=== PATIENT | female | born 1945 | race Caucasian/White ===

== ENCOUNTER → 2016-08-10 | Outpatient (CLI) | payer MEDICARE, MEDICAID ==
[~2016-08-10] MED LIST: AMBIEN10 MG PO; AMBIEN5 MG; ATIVAN1 MG; ATIVAN1 MG PO; CIPRO500 MG PO; CIPROFLOXACIN500 MG PO; CYMBALTA60 MG PO; DAYPRO600 M1 PO; HYDROCODONE BIT1 T11 PO; LEVOFLOXACIN500 MG PO; LIPITOR20 MG PO; LOPRESSOR25 MG PO; NEXIUM40 MG PO; PREVACID15 MG PO; PROZAC10 M1 PO; SEPTRA DS 800 M1 TAB PO; SOMA250 MG PO; SYNTHROID,LEVOTHROID PO; VICODIN 5/500 505 MG PO; VICODIN ES 7501 TA1 PO
== END | disposition home or self-care (01) ==
LOC: RAD 12:48
DX: M47.896 Other spondylosis, lumbar region (principal)

== ENCOUNTER 2017-08-21 08:50 | Inpatient (IN) | payer MEDICARE, MEDICAID ==
[~2017-08-21] VITALS: Ht 160 cm; Wt 88.6 kg
[2017-08-21] VITALS (8 sets, daily range): BP systolic 119–180; BP diastolic 56–96
[2017-08-21 09:27] LABS: BASO % 0.7 % (0.0-1.0); EOS % 0.7 % (1.0-4.0); HEMATOCRIT 38.9 % (37.0-47.0); HEMOGLOBIN 12.7 g/dl (12.0-16.0); LYMPH # 1.9 10*3/uL (1.3-4.4); LYMPH % 33.8 % (27.0-41.0); MEAN CELL VOLUME 95.1 fl (81.0-99.0); MEAN CORPUSCULAR HGB 31.1 pg (27.0-31.0); MEAN CORPUSCULAR HGB CONC 32.6 g/dl (33.0-37.0); MEAN PLATELET VOLUME 10.1 fl (9.6-12.3); MONO # 0.6 10*3/uL (0.1-1.0); MONO % 10.3 % (3.0-9.0); NEUT # 3.1 10*3/uL (2.3-7.9); NEUT % 54.3 % (47.0-73.0); PLATELET COUNT AUTOMATED 215 10*3/uL (130-400); RED BLOOD COUNT 4.09 10*6/uL (4.10-5.10); RED CELL DISTRI WIDTH 13.1 % (0-14.5); WHITE BLOOD COUNT 5.7 10*3/uL (4.8-10.8)
[2017-08-21 09:39] LABS: ACT PARTIAL THROMBO TIME 24.3 SECONDS (20.8-31.5); INTERNATIONAL NORM RATIO 0.9 (2.0-3.5)
[2017-08-21 09:47] LABS: ALBUMIN 3.3 gm/dl (3.1-4.5); ALKALINE PHOSPHATASE 78 U/L (45-117); BUN 15 mg/dl (7-24); CHLORIDE 107 mmol/L (98-107); CREATININE 0.92 mg/dL (0.55-1.02); LIPASE 157 U/L (73-393); POTASSIUM 3.6 mmol/L (3.5-5.1); SGOT/AST 36 IU/L (3-35); SGPT/ALT 47 U/L (12-78); SODIUM 141 mmol/L (136-145); TOTAL PROTEIN 6.5 gm/dL (6.4-8.2); TROPONIN I < 0.015 ng/ml (<0.045)
[2017-08-21 09:54] LABS: FREE T4 0.57 ng/dl (0.76-1.46)
[2017-08-21 09:59] LABS: THYROID STIM HORMONE (HS) 6.12 uIU/ml (0.358-4.75)
[2017-08-21 10:10] LABS: BILIRUBIN NEGATIVE (NEGATIVE); BLOOD NEGATIVE (NEGATIVE); CLARITY SL CLOUDY (CLEAR); COLOR YELLOW (YELLOW); GLUCOSE NEGATIVE (NEGATIVE); KETONE NEGATIVE (NEGATIVE); LEUKO ESTERASE NEGATIVE (NEGATIVE); NITRITE NEGATIVE (NEGATIVE); PH 5.5 (5.0-9.0); SPECIFIC GRAVITY <= 1.005 (1.005-1.030); UROBILINOGEN 0.2 E.U./dl (0.2-1.0)
[2017-08-21 10:25] LABS: BACTERIA 3+
[2017-08-22] VITALS: BP 134/57
[2017-08-22 06:10] LABS: BASO # 0.1 10*3/uL (0.0-0.1); EOS # 0.1 10*3/uL (0.0-0.4); EOS % 1.2 % (1.0-4.0); HEMATOCRIT 39.8 % (37.0-47.0); HEMOGLOBIN 12.8 g/dl (12.0-16.0); LYMPH # 2.2 10*3/uL (1.3-4.4); LYMPH % 38.9 % (27.0-41.0); MEAN CELL VOLUME 95.9 fl (81.0-99.0); MEAN CORPUSCULAR HGB 30.8 pg (27.0-31.0); MEAN CORPUSCULAR HGB CONC 32.2 g/dl (33.0-37.0); MEAN PLATELET VOLUME 10.5 fl (9.6-12.3); MONO # 0.7 10*3/uL (0.1-1.0); MONO % 11.7 % (3.0-9.0); NEUT # 2.7 10*3/uL (2.3-7.9); NEUT % 46.5 % (47.0-73.0); PLATELET COUNT AUTOMATED 212 10*3/uL (130-400); RED BLOOD COUNT 4.15 10*6/uL (4.10-5.10); RED CELL DISTRI WIDTH 13.1 % (0-14.5); WHITE BLOOD COUNT 5.7 10*3/uL (4.8-10.8)
[2017-08-22 06:17] LABS: ALBUMIN 3.1 gm/dl (3.1-4.5); BUN 18 mg/dl (7-24); CHLORIDE 107 mmol/L (98-107); CHOLESTEROL 171 mg/dL (<200); CREATININE 0.92 mg/dL (0.55-1.02); POTASSIUM 3.6 mmol/L (3.5-5.1); SGOT/AST 33 IU/L (3-35); SGPT/ALT 46 U/L (12-78); SODIUM 141 mmol/L (136-145); TRIGLYCERIDES 141 mg/dl (<150); VLDL CHOLESTEROL 28 mg/dL (6-40)
[2017-08-22 06:19] LABS: ALKALINE PHOSPHATASE 78 U/L (45-117); HDL CHOLESTEROL 60 mg/dl (40-60); LDL CHOLESTEROL 83 mg/dL (9-159); TOTAL PROTEIN 6.2 gm/dL (6.4-8.2)
[2017-08-22 07:55] LABS: VITAMIN D, 25-HYDROXY 44.7 ng/mL (30-100)
[2017-08-22 08:00] VITALS: BP 173/60
[2017-08-22 12:00] VITALS: BP 156/55
[2017-08-22 16:00] VITALS: BP 156/61
[2017-08-22 20:00] VITALS: BP 165/66
[2017-08-23] VITALS: BP 138/50
[2017-08-23 05:58] LABS: BASO # 0.1 10*3/uL (0.0-0.1); BASO % 0.8 % (0.0-1.0); EOS # 0.1 10*3/uL (0.0-0.4); EOS % 1.1 % (1.0-4.0); HEMATOCRIT 38.6 % (37.0-47.0); HEMOGLOBIN 12.6 g/dl (12.0-16.0); LYMPH # 2.5 10*3/uL (1.3-4.4); LYMPH % 38.9 % (27.0-41.0); MEAN CORPUSCULAR HGB 31.3 pg (27.0-31.0); MEAN CORPUSCULAR HGB CONC 32.6 g/dl (33.0-37.0); MEAN PLATELET VOLUME 10.5 fl (9.6-12.3); MONO # 0.7 10*3/uL (0.1-1.0); MONO % 10.8 % (3.0-9.0); NEUT # 3.1 10*3/uL (2.3-7.9); NEUT % 47.9 % (47.0-73.0); PLATELET COUNT AUTOMATED 211 10*3/uL (130-400); RED BLOOD COUNT 4.02 10*6/uL (4.10-5.10); WHITE BLOOD COUNT 6.4 10*3/uL (4.8-10.8)
[2017-08-23 06:33] LABS: CREATININE 1.1 mg/dL (0.55-1.02); POTASSIUM 4.2 mmol/L (3.5-5.1)
[2017-08-23 08:00] VITALS: BP 154/77
[2017-08-23 12:00] VITALS: BP 156/59
[2017-08-23] MEDS ORDERED: Synthroid,Lev100 MCG PO ×2 (14:15→14:24)
[2017-08-23] MEDS ORDERED: NEXIUM40 MG PO ×2 (14:15→14:24)
[2017-08-23] MEDS ORDERED: LOPRESSOR25 MG PO ×2 (14:15→14:24)
[2017-08-23] MEDS ORDERED: SEPTDS PO (14:15)
[2017-08-23] MEDS ORDERED: ATIVAN1 MG PO ×2 (14:15→14:24)
[2017-08-23] MEDS ORDERED: ZOLPIDEM TART5 MG PO ×2 (14:15→14:24)
[2017-08-23] MEDS ORDERED: LIPITOR20 MG PO ×2 (14:15→14:24)
== END 2017-08-23 15:30 | disposition home or self-care (01) | DRG 392 ==
LOC: ED 08:50 → EDHOLD 11:40 → 5E 11:40
PROVIDERS: Emergency Medicine; Internal Medicine Hospice and Palliative Medicine; Internal Medicine Nephrology
DX: K21.9 Gastro-esophageal reflux disease without esophagitis (principal); E83.41 Hypermagnesemia; N39.0 Urinary tract infection, site not specified; B96.1 Klebsiella pneumoniae [K. pneumoniae] as the cause of diseases classified elsewhere; R07.9 Chest pain, unspecified; D72.818 Other decreased white blood cell count; F32.9 Major depressive disorder, single episode, unspecified; D72.821 Monocytosis (symptomatic); E03.9 Hypothyroidism, unspecified; E66.09 Other obesity due to excess calories; F41.9 Anxiety disorder, unspecified; E78.5 Hyperlipidemia, unspecified; I10 Essential (primary) hypertension; R94.31 Abnormal electrocardiogram [ECG] [EKG]; G47.00 Insomnia, unspecified; R29.6 Repeated falls; K57.90 Diverticulosis of intestine, part unspecified, without perforation or abscess without bleeding; Z68.34 Body mass index [BMI] 34.0-34.9, adult; Z90.710 Acquired absence of both cervix and uterus; Z82.49 Family history of ischemic heart disease and other diseases of the circulatory system; Z83.6 Family history of other diseases of the respiratory system; Z79.899 Other long term (current) drug therapy

== ENCOUNTER → 2019-02-05 | Outpatient (CLI) | payer MEDICARE, MEDICAID ==
[~2019-02-05] MED LIST changes: +HYDROCHLOROTHIA25 M1 PO; +LISINOPRIL40 MG PO; +MUCINEX ER600 MG PO; +PREDNISONE10 MG PO; +SEPTDS PO; +SEROQUEL300 MG PO; +Synthroid,Lev100 MCG PO; +TESSALON PERLE100 M1 PO; +ZOLPIDEM TART5 MG PO
[2019-02-05 12:29] LABS: HEMATOCRIT 43.6 % (37.0-47.0); HEMOGLOBIN 14.1 g/dl (12.0-16.0); MEAN CELL VOLUME 91.6 fl (81.0-99.0); MEAN CORPUSCULAR HGB 29.6 pg (27.0-31.0); MEAN CORPUSCULAR HGB CONC 32.3 g/dl (33.0-37.0); MEAN PLATELET VOLUME 11.5 fl (9.6-12.3); RED BLOOD COUNT 4.76 10*6/uL (4.10-5.10); RED CELL DISTRI WIDTH 13.2 % (0-14.5); WHITE BLOOD COUNT 6.9 10*3/uL (4.8-10.8)
[2019-02-05 12:41] LABS: ALBUMIN 3.6 gm/dl (3.1-4.5); CREATININE 1.09 mg/dL (0.55-1.02); POTASSIUM 3.5 mmol/L (3.5-5.1)
[2019-02-05 12:48] LABS: THYROID STIM HORMONE (HS) 1.86 uIU/ml (0.358-4.75)
[2019-02-06 11:08] LABS: MICRO ALBUMIN/CRE RATIO 2.6 (0.0-30.0)
== END | disposition home or self-care (01) ==
LOC: LAB 11:27
PROVIDERS: Registered Nurse Flight
DX: Z13.220 Encounter for screening for lipoid disorders (principal); M47.816 Spondylosis without myelopathy or radiculopathy, lumbar region; M17.0 Bilateral primary osteoarthritis of knee; E03.9 Hypothyroidism, unspecified; I10 Essential (primary) hypertension; M79.89 Other specified soft tissue disorders; M25.551 Pain in right hip